=== PATIENT | male | born 1945 | race Two or more races ===

== ENCOUNTER → 2018-06-29 | Outpatient (CLI) | END | disposition home or self-care (01) ==

== ENCOUNTER → 2018-09-28 | Outpatient (CLI) | END | disposition home or self-care (01) ==

== ENCOUNTER 2018-10-01 07:46 | Observation (INO) | END 2018-10-03 14:15 | disposition home health service (06) ==

== ENCOUNTER → 2018-10-22 | Outpatient (CLI) | END | disposition home or self-care (01) ==